=== PATIENT | male | born 1965 | race Hispanic/Latino ===

== ENCOUNTER 2018-01-27 23:53 | Inpatient (IN) | payer OTHER ==
[2018-01-28 00:45] LABS: #Basophils 0.1 thou/uL (0.0-0.2); #Eosinphils 0.1 thou/uL (0.0-0.7); #Lymphocytes 1.6 thou/uL (1.20-3.40); #Monocytes 1.3 thou/uL (0.11-0.59); %Basophils 0.8 % (0.0-1.0); %Eosinophils 1.1 % (0.0-10.0); %Lymphocytes 13.3 % (21.0-51.0); %Monocytes 10.5 % (0.0-10.0); %Neutrophils 74.3 % (42.0-75.0); Hemoglobin 10.7 g/dL (14.0-18.0); Mean Corpuscular HGB CONC 34.4 g/dL (32.0-36.0); Mean Corpuscular Hemoglobin 33.3 pg (27.0-31.0); Mean Corpuscular Volume 96.7 fL (78.0-98.0); Mean Platelet Volume 7.5 fL (7.4-10.4); Platelet Count 377 thou/uL (130-400); RBC Distribution Width 11.7 % (11.5-14.5); Red Blood Cell (RBC) Count 3.21 mill/uL (4.70-6.10); White Blood Cell (WBC) Count 12.1 thou/uL (4.8-10.8)
[2018-01-28] MEDS ORDERED: Piperacillin/Tazobactam 3.375 GM VIAL ONE (00:45)
[2018-01-28 00:51] LABS: PTT 27.9 SEC (22.9-36.1); Prothrombin Time 13.6 SEC (12.0-14.7)
[2018-01-28] MEDS ORDERED: Pantoprazole 80 MG, Admixture Fee 1 EACH in Sodium Chloride 0.9% 100 ML IVP SCH (01:00)
--- NOTE | 2018-01-28 01:01 | PDOC.FPRHP ---
- History of Present Illness Chief Complaint: Dark stools History of Present Illness: This is a 52 yo male with a PMH of Hep C, DM, MDD who presents to the ED with a cc of dark stools. Pt reports that he first notice dark, loose stools yesterday afternoon when he was using the restroom. He reports falling once on the way back to his bed. He denies head trauma at that time. He also reports abdominal pain and nausea that started after he notice the melena. He denies CP, SOB, or dizziness. Pt. also reports burning on urination and penile discharge. He reports being uncircumcised and states the symptoms started when his abdominal pain started. - Allergies/Adverse Reactions Allergies Allergy/AdvReac Type Severity Reaction Status Date / Time aripiprazole [From Abilify] Allergy Verified 01/28/18 00:46 Butyrophenones Allergy Verified 01/28/18 00:46 Phenothiazines Allergy Verified 01/28/18 00:46 - History PMHx: DMII, Hep C, MDD PSHx: Appendectomy FHx: noncontributory Social: Denies 2/ incarceration. Smoked prior to [facility] - Review of Systems General: reports: fever/chills (fever). denies: weight/appetite/sleep changes Eyes: reports: vision changes (blurry). denies: eye pain ENT: denies: nasal congestion, rhinorrhea Respiratory: denies: cough, congestion, shortness of breath Cardiovascular: reports: chest pain (yesterday, msk in nature, resolved currently). denies: palpitation Gastrointestinal: reports: diarrhea (dark tarry stools, no loss of bowel control ), abdominal pain. denies: nausea, vomiting Genitourinary: reports: dysuria. denies: incontinence Skin: denies: rashes, lesions Musculoskeletal: denies: pain, tenderness Neurological: denies: numbness, syncope Psychological: reports: depression. denies: anxiety - Vital signs BP: 152/99 HR: 99 RR: 20 Tmax: 98.7 Pox: 99% on 3 Wt: 122.47 Kg FMR H&P: Results - Labs Result Diagrams: 01/28/18 00:31 Lab results: WBC 12.1 thou/uL (4.8-10.8) H 01/28/18 00:31 Hgb 10.7 g/dL (14.0-18.0) L 01/28/18 00:31 Hct 31.1 % (42.0-52.0) L 01/28/18 00:31 MCV 96.7 fL (78.0-98.0) 01/28/18 00:31 Plt Count 377 thou/uL (130-400) 01/28/18 00:31 Neutrophils % 74.3 % (42.0-75.0) 01/28/18 00:31 - Radiology Interpretation CT scan - abdomen Status: report reviewed by me (No evidence for extravastation of contrast and identification of active GI bleed site. Sigmoid has short segmentwith thickened atkins and narrowed lumen. L5S1 disc disease) FMR H&P: A/P - Problem List (1) Upper GI bleed Current Visit: Yes Status: Acute Code(s): K92.2 - GASTROINTESTINAL HEMORRHAGE, UNSPECIFIED (2) DM type 2 (diabetes mellitus, type 2) Current Visit: Yes Status: Acute (3) Hepatitis C Current Visit: Yes Status: Acute Code(s): B19.20 - UNSPECIFIED VIRAL HEPATITIS C WITHOUT HEPATIC COMA (4) MDD (major depressive disorder) Current Visit: Yes Status: Acute Code(s): F32.9 - MAJOR DEPRESSIVE DISORDER , SINGLE EPISODE, UNSPECIFIED - Plan This is a 52 yo male with PMH of Hep c, DMII, MDD Upper GI bleed -Admit to medical. Repeat AM CBC. RUQ US looking for cirrhosis. We are giving pt. 1L ns bolus followed by maintenance. He is receiving protonix. We will consult GI in the morning for endoscopy. Likely not hemorrhagic in nature, however type and screen has been ordered. Outside lab shows A positive. Hgb is stable at 10.7, was 10.6 at outside facility DMII -Hold metformin for now. SSI with q6hr accuchecks DMM -Continue home meds Burning with urination -UA negative for UTI. We are running a GC/chlamydia as he has been having discharge. Hep C -Aware, raises some concern for cirrhosis and esophageal varices Code: Full Prophylaxis: protonix Family: none at bedside Disposition: Long Term in 2-3 days FMR H&P: Upper Level - Pertinent history CC: dark stool, abdominal pain HPI: 52 yo HM PMH IDDM and Hep C. Presents form [facility] with CC of abdominal pain for 2 days. States he has had dark tarry stools for 1.5 days. Denies prior dark stools. States he has had Hep C since he was 21 but has not been diagnosed with cirrhosis. He was seen at the [facility] before being transferred to [facility]. - Pertinent findings VS: unremarkable except for mild tachycardia at 103. GEN: mild pain, A&O x4, appropriately interactive. CV: tachycardic, regular, no murmur Lung: CTA-B, normal effort Abdomen: soft, TTP RUQ, LUQ, and epigastric region, BSx4 quadrants, no rebound or guarding. Labs: Remarkable for Hemoglobin 10.6->10.4->10.7, lipase negative, Alk Phos 147 , FOBT positive, CT Abdomen/pelvis: thickening sigmoid colon, otherwise unremarkable EKG: NSR, no ST changes, - Plan Date/Time: 01/28/18 0100 I, Fidel Tate MD, have evaluated this patient and agree with findings/plan as outlined by nutrition internship resident. Pertinent changes/additions are listed here. 1. Melena: mild tachycardia, will bolus 1L NS and start NS at 160 mL/hr, Type and screen in house in case transfusion is needed. continue protonix GTT. Will consider octreotide gtt if begins to vomit blood. GI consult in AM. Hold NPO for now. Will give rocephin 1g since cirrhosis cannot be r/o at this time 2. Abdominal Pain: possible gastritis, PRN fentanyl, 3. Hep C: RUQ US to evaluate for cirrhosis, rocephin. 4. IDDM: hold long acting insulin, Q6hr checks, sliding scale insulin, resume once off NPO. 5. Diet: NPO 6. PPx: protonix, SCD 7. CODE: FULL
[2018-01-28] MEDS ORDERED: Fentanyl 100 MCG/2 ML VIAL ONE (01:30)
[2018-01-28 02:13] LABS: Anion Gap 13 mmol/L (10-20); BUN (Urea Nitrogen) 49 mg/dL (8.4-25.7); Calc. Creatinine Clearance 0 mL/min (70-130); Calcium 9.4 mg/dL (7.8-10.44); Carbon Dioxide 22 mmol/L (22-29); Chloride 109 mmol/L (98-107); Estimated GFR-MDRD 80; Glucose 222 mg/dL (70-105); Potassium 4.8 mmol/L (3.5-5.1); Sodium 139 mmol/L (136-145)
[2018-01-28] MEDS ORDERED: Ondansetron ODT 4 MG TAB PO PRN (02:48)
[2018-01-28] MEDS ORDERED: HumaLOG 300 UNITS/3 ML VIAL SC PRN (02:48)
[2018-01-28] MEDS ORDERED: Dextrose 50% Abboject 50 ML SYRINGE SLOW IVP PRN (02:48)
[2018-01-28] MEDS ORDERED: Acetaminophen 325 MG TAB PO PRN (02:48)
[2018-01-28] MEDS ORDERED: Sodium Chloride 0.9% 1,000 ML IV SCH ×2 (02:48→16:43)
[2018-01-28] MEDS ORDERED: Dextrose 5% in Water 1,000 ML IV PRN (02:48)
[2018-01-28] MEDS: Sodium Chloride 0.9% 1,000 ML IV SCH ×5 (03:42→17:35)
[2018-01-28] MEDS ORDERED: cefTRIAXone\\ROCEPHIN 1 GM in Sodium Chloride 0.9% 100 ML IVPB SCH (04:00)
[2018-01-28 04:42] LABS: #Eosinphils 0.1 thou/uL (0.0-0.7); #Lymphocytes 1.2 thou/uL (1.20-3.40); #Monocytes 0.8 thou/uL (0.11-0.59); #Neutrophils 10.5 thou/uL (1.40-6.50); %Basophils 0.3 % (0.0-1.0); %Eosinophils 1.1 % (0.0-10.0); %Lymphocytes 9.5 % (21.0-51.0); %Monocytes 6.2 % (0.0-10.0); %Neutrophils 82.9 % (42.0-75.0); Hemoglobin 9.8 g/dL (14.0-18.0); Mean Corpuscular HGB CONC 35.6 g/dL (32.0-36.0); Mean Corpuscular Hemoglobin 34.1 pg (27.0-31.0); Mean Corpuscular Volume 95.9 fL (78.0-98.0); Mean Platelet Volume 8.4 fL (7.4-10.4); Platelet Count 319 thou/uL (130-400); RBC Distribution Width 11.5 % (11.5-14.5); Red Blood Cell (RBC) Count 2.86 mill/uL (4.70-6.10); White Blood Cell (WBC) Count 12.7 thou/uL (4.8-10.8)
[2018-01-28 04:45] LABS: Anion Gap 14 mmol/L (10-20); BUN (Urea Nitrogen) 43 mg/dL (8.4-25.7); Calc. Creatinine Clearance 0 mL/min (70-130); Calcium 8.9 mg/dL (7.8-10.44); Carbon Dioxide 19 mmol/L (22-29); Chloride 110 mmol/L (98-107); Estimated GFR-MDRD Greater than 90; Glucose 228 mg/dL (70-105); Potassium 4.5 mmol/L (3.5-5.1); Sodium 138 mmol/L (136-145)
[2018-01-28 04:51] VITALS: BMI 33.7
[2018-01-28] MEDS: Fentanyl 100 MCG/2 ML VIAL SLOW IVP PRN ×6 (06:57→23:47)
--- NOTE | 2018-01-28 07:27 | ULT ---
SONOGRAM RIGHT UPPER QUADRANT: HISTORY: Right upper quadrant pain. FINDINGS: Gallbladder is well distended without stone evident. Common duct 0.3 cm. Liver unremarkable without focal mass or intrahepatic biliary dilatation. No free fluid. IMPRESSION: Normal right upper quadrant sonogram. POS: [facility]
--- NOTE | 2018-01-28 10:01 | PDOC.FM ---
- Subjective Subjective: Patient states his abdominal pain is little better this AM. Denies diarrhea or further black stools. He has some generalized body jerking that he says he takes a medicine like benadryl for them. He reports having them a long time and not new or worsened. - Objective MAR Reviewed: Yes Vital Signs & Weight: Vital Signs (12 hours) Temp Pulse Resp BP Pulse Ox 01/28/18 08:00 97.4 F L 84 20 130/78 98 01/28/18 05:19 97.4 F L 84 20 136/82 97 01/28/18 02:30 97.8 F 95 18 144/90 H 100 Weight Weight 122.47 kg I&O: 01/27/18 01/28/18 01/29/18 06:59 06:59 06:59 Intake Total 1465 Output Total 800 Balance 665 Result Diagrams: 01/28/18 03:49 01/28/18 03:49 Radiology: RUQ US- no evidence of cirrhosis, liver abnormalities or gallbladder. Phys Exam - Physical Examination Constitutional: NAD Respiratory: no wheezing, no rales, no rhonchi, clear to auscultation bilateral Cardiovascular: RRR, no significant murmur Gastrointestinal: soft mild diffuse tenderness, worse in epigastric region Musculoskeletal: no edema Neurological: normal sensation, moves all 4 limbs generalized body shaking, somewhat like a jerking sensation Psychiatric: normal affect, A&O x 3 Dx/Plan (1) Upper GI bleed Code(s): K92.2 - GASTROINTESTINAL HEMORRHAGE, UNSPECIFIED Status: Acute Plan: Spoke with GI for EGD will stop rocephin as no evidence for cirrhosis on US and nmll coags and LFTs. cont protonix (2) DM type 2 (diabetes mellitus, type 2) Status: Acute Plan: hold long acting insulin until taking po (3) Hepatitis C Code(s): B19.20 - UNSPECIFIED VIRAL HEPATITIS C WITHOUT HEPATIC COMA Status: Chronic Qualifiers: Viral hepatitis chronicity: chronic (4) MDD (major depressive disorder) Code(s): F32.9 - MAJOR DEPRESSIVE DISORDER, SINGLE EPISODE, UNSPECIFIED Status : Acute
[2018-01-28] MEDS ORDERED: Ondansetron HCl/PF 4 MG/2 ML Vial IVP PRN (12:27)
[2018-01-28] MEDS ORDERED: Lidocaine 1% PF 5 ML VIAL ONE (14:39)
[2018-01-28] MEDS ORDERED: PHENYLEPHRINE-NS 100 MCG/ML 10 ML SYRINGE ONE (14:39)
[2018-01-28] MEDS ORDERED: PROPOFOL 200 MG/20 ML VIAL ONE (14:39)
[2018-01-28] MEDS ORDERED: GoLYTELY 4,000 ml Bottle PO SCH (17:30)
--- NOTE | 2018-01-29 00:47 | CON ---
DATE OF CONSULTATION: 01/28/2018 REFERRING PHYSICIAN: Dr. Manpreet Argueta and Dr. Anna Mckeon, [facility]. REASON FOR CONSULTATION: History of black tarry stool, anemia due to blood loss. HISTORY OF PRESENT ILLNESS: Mr. Bravo Johns is a very pleasant 52-year-old Latin-Bel[place]ian male transferred from the [facility] with history of melena stool. The patient has had no prior GI symptoms. The patient has had noted black tarry stool yesterday and was brought to the ER. He had a CBC done which showed mild anemia. The stool is tarry and black. The patient did have abdominal pain, nausea, vomiting. There is no history of chronic acid reflux. The patient has no prior history of peptic ulcer disease. The patient's bowel movements are fairly regular, it goes once every day. He denies any rectal bleeding in the past. The patient has had no intake. No history of any aspirin intake. The patient is awake, alert, and communicative. The patient is living in [place], [place] and he is in the [facility] for the last 9 months. The patient has history of depression and also history of type 2 diabetes mellitus. History of chronic hepatitis C for more than 20 years. He says he has never been treated before. Mostly his hepatitis status is unclear. He does see a doctor in [place] and does not have any recent hepatitis markers done. He has no relevant history. ALLERGIES: ABILIFY, PHENOTHIAZINES, BUTYROPHENONE. SOCIAL HISTORY: The patient is single. Past history of smoking. No history of alcohol abuse in the past, but since he has been in half[place]way, he has had known smoking or drinking alcohol. Past history of drug abuse many years ago. MEDICAL ILLNESSES: 1. Major depression. 2. Type 2 diabetes mellitus. 3. Chronic hepatitis C, untreated. . MEDICATION LIST: Reviewed. FAMILY HISTORY: Mother has diabetes mellitus and breast cancer. Brother has hep C and patient was unable to tell me whether he was treated. REVIEW OF SYSTEMS: A 10-point system review. Constitutional: No history of fever, no weight loss, no night sweats. Respiratory System: No history of chronic cough, hemoptysis, dyspnea. Cardiovascular System: No chest pain, no palpitation, no dyspnea, orthopnea or PND. Gastrointestinal: History of dark stool since yesterday, but before that he had no GI symptoms. Genitourinary: No dysuria, complains of burning with urination and some discharge. Musculoskeletal/Endocrine/Hematologic: Nonrelevant. Neuropsychiatric: History of major depression. PHYSICAL EXAMINATION: GENERAL: He is awake, alert, and communicative. He is in no distress. VITAL SIGNS: Temperature 97.4 degrees Fahrenheit, pulse is 84, blood pressure 130/78. HEENT: Conjunctivae clear. NECK: Supple. No adenitis or thyromegaly noted. CARDIOVASCULAR SYSTEM: First and second heart sounds normal. LUNGS: Clear to auscultation. ABDOMEN: Abdomen is soft. Abdomen is nondistended. Abdomen is nontender. There is no organomegaly or masses. Bowel sounds normal. EXTREMITIES: Reveal no edema. LABORATORY DATA: On admission, WBC 12,100, today 12,700; hemoglobin 10.7 dropping to 9.8 today; hematocrit 31.1; platelet count 319,000; polymorphs 82; lymphocytes 9. Serum chemistries: Sodium 138, potassium 4.5, chloride 110, bicarbonate 19, BUN is 23, creatinine 0.86, glucose 228, calcium 9.4. Abdominal sonogram, which revealed no pathology. CLINICAL IMPRESSION: 1. A 52-year-old Latin-Bel[place]ian male with black tarry stool since yesterday. The patient has no abdominal pain, no nausea or vomiting. There is no prior history of peptic ulcer. History of hepatitis C, which is untreated. He has no prior history of liver cirrhosis. Based on the history, I believe he most likely has bleeding ulcer disease. However, a CAT scan done and I cannot find the CAT scan report anywhere. However the admitting history and physical stated that he had a sigmoid colon wall thickening and also luminal narrowing. However, he has no other GI symptoms. 2. Type 2 diabetes mellitus. 3. Depression. 4. Chronic hepatitis C. PLAN: Emergent EGD. I believe he probably needs a colonoscopy, because abdominal CAT scan showing some thickening of the sigmoid colon with some luminal narrowing. [facility]
[2018-01-29] MEDS: Sodium Chloride 0.9% 1,000 ML IV SCH ×3 (01:15→17:27)
--- NOTE | 2018-01-29 03:06 | OP ---
DATE OF PROCEDURE: 01/28/2018 OPERATIVE PROCEDURE: Esophagogastroduodenoscopy with biopsy. PREOPERATIVE DIAGNOSES: A 52-year-old male with melena, anemia due to blood loss. The patient underwent EGD. The patient also has history of chronic hepatitis C, untreated. POSTOPERATIVE DIAGNOSES: 1. Normal esophageal mucosa. No esophageal varices seen. 2. No gastric varices seen. 3. Two large ulcers over the gastric antrum. The ulcers are quite large and deep. The ulcer base is very smooth and clean, and I do not see a visible vessel. At the time of endoscopy, the stomach is completely free of any blood. 4. Normal duodenum. PROCEDURE IN DETAIL: The patient was placed on his left lateral position and was given sedation by Anesthesia Department. A Pentax video gastroscope under direct vision passed down the oropharynx, past the GE junction into the stomach. The stomach was completely free of any blood. The esophageal mucosa appeared normal. There were no esophageal varices seen. No esophagitis seen. At the GE junction, no pathology seen. Retroflexion failed to show any pathology in the fundus or cardia. There were no gastric varices seen. The gastric antrum shows 2 large ulcerations. The ulcerations appeared chronic and quite large. One of the ulcer measured approximately 3 x 2 cm and other one measured by 3 x 2 cm. Both the ulcer base appeared smooth and I could not see any visible vessel. The duodenal bulb and descending duodenum, no pathology seen. A biopsy obtained from the gastric ulcer at the margins. The stomach was decompressed and the scope removed. RECOMMENDATIONS: 1. Clear liquid diet. 2. Protonix. 3. Follow up H&H. 4. Transfuse p.r.n. 5. Obtain hepatitis markers to see whether he still has positive hepatitis C RNA. 6. There is some mention of sigmoid colon thickening and narrowing on CAT scan , but the patient really does not have any lower GI symptoms. May consider colonoscopy before discharge. [facility]
[2018-01-29] MEDS: Fentanyl 100 MCG/2 ML VIAL SLOW IVP PRN ×4 (04:25→20:43)
--- NOTE | 2018-01-29 06:11 | PDOC.FM ---
- Subjective Subjective: Pt is trying to finish his bowel prep this morning for his colonoscopy. He is still having black stools, reports nausea. - Objective Vital Signs & Weight: Vital Signs (12 hours) Temp Pulse Resp BP BP Pulse Ox 01/29/18 04:44 98.2 F 91 16 114/66 96 01/29/18 01:22 98.6 F 98 18 135/78 99 01/28/18 20:40 97 01/28/18 20:00 99.5 F 93 18 122/74 97 Weight Weight 122.47 kg I&O: 01/27/18 01/28/18 01/29/18 06:59 06:59 06:59 Intake Total 1465 Output Total 800 Balance 665 Result Diagrams: 01/29/18 07:23 01/29/18 07:23 <Brunilda Hennessy - Last Filed: 01/29/18 09:15> - Objective Vital Signs & Weight: Vital Signs (12 hours) Temp Pulse Resp BP BP Pulse Ox 01/29/18 12:25 97.8 F 80 18 132/78 98 01/29/18 08:00 97.5 F L 88 18 129/71 97 01/29/18 04:44 98.2 F 91 16 114/66 96 Weight Weight 122.47 kg I&O: 01/28/18 01/29/18 01/30/18 06:59 06:59 06:59 Intake Total 1465 3450 480 Output Total 800 2200 Balance 665 1250 480 Result Diagrams: 01/29/18 14:02 01/29/18 07:23 <Deloris Pro - Last Filed: 01/29/18 15:48> Phys Exam - Physical Examination Apppears uncomfortable, pale HEENT: PERRLA Neck: no nodes, supple Respiratory: no wheezing, clear to auscultation bilateral Cardiovascular: RRR, no significant murmur Gastrointestinal: soft, positive bowel sounds TTP in suprapubic area Musculoskeletal: no edema, pulses present Psychiatric: normal affect, A&O x 3 <Brunilda Hennessy - Last Filed: 01/29/18 09:15> Dx/Plan (1) Upper GI bleed Code(s): K92.2 - GASTROINTESTINAL HEMORRHAGE, UNSPECIFIED Status: Acute (2) Hepatitis C Code(s): B19.20 - UNSPECIFIED VIRAL HEPATITIS C WITHOUT HEPATIC COMA Status: Chronic Qualifiers: Viral hepatitis chronicity: chronic (3) DM type 2 (diabetes mellitus, type 2) Status: Chronic (4) MDD (major depressive disorder) Code(s): F32.9 - MAJOR DEPRESSIVE DISORDER, SINGLE EPISODE, UNSPECIFIED Status : Chronic - Plan Plan: 52 yo M presents with UGI bleed Upper GI Bleed -Spoke with GI for EGD, showed ulcers -biopsy path pending -will stop rocephin as no evidence for cirrhosis on US and nml coags and LFTs. -cont protonix -Colonoscopy today -Hgb dropped significantly today to 7.6, will repeat H&H today. Continue fluids DM type 2 -restart long acting insulin after colonoscopy Hepatitis C -aware Concern for G/C -Pt has discharge and penile pain -Awaiting GC results, will treat pending results MDD <Brunilda Hennessy - Last Filed: 01/29/18 09:15> Attending Addendum - Attending Addendum Date/Time: 01/29/18 [id number] I personally evaluated the patient and discussed the management with Dr. Cheli Hennessy I agree with the History, Examination, Assessment and Plan documented above with any addition or exceptions noted below- Patient denies any complaints. Hungry and ready to eat. Denies any abdominal pain currently. Afebrile VSS. A/P : 1) Upper Gi bleed secondary to gastric ulcer- Appreciate GI assistance; Continue PPI. Colonoscopy done today negative per patient. 2) Anemia secondary to #1- repeat H/H stable; continue to monitor; start iron. 3) DM- elevated BG but has been NPO intermittently; will monitor now that diet has resumed and adjust meds as needed. <Deloris Pro - Last Filed: 01/29/18 15:48>
[2018-01-29 07:47] LABS: #Basophils 0.1 thou/uL (0.0-0.2); #Eosinphils 0.4 thou/uL (0.0-0.7); #Lymphocytes 1.5 thou/uL (1.20-3.40); #Monocytes 0.6 thou/uL (0.11-0.59); #Neutrophils 3.8 thou/uL (1.40-6.50); %Basophils 1.2 % (0.0-1.0); %Eosinophils 6.8 % (0.0-10.0); %Lymphocytes 23.1 % (21.0-51.0); %Monocytes 8.9 % (0.0-10.0); Hemoglobin 7.6 g/dL (14.0-18.0); Mean Corpuscular HGB CONC 34.2 g/dL (32.0-36.0); Mean Corpuscular Hemoglobin 33.1 pg (27.0-31.0); Mean Corpuscular Volume 96.8 fL (78.0-98.0); Mean Platelet Volume 7.5 fL (7.4-10.4); Platelet Count 286 thou/uL (130-400); RBC Distribution Width 11.5 % (11.5-14.5); Red Blood Cell (RBC) Count 2.31 mill/uL (4.70-6.10); White Blood Cell (WBC) Count 6.3 thou/uL (4.8-10.8)
[2018-01-29 08:02] LABS: Anion Gap 12 mmol/L (10-20); BUN (Urea Nitrogen) 13 mg/dL (8.4-25.7); Calc. Creatinine Clearance 200 mL/min (70-130); Carbon Dioxide 23 mmol/L (22-29); Chloride 108 mmol/L (98-107); Estimated GFR-MDRD Greater than 90; Glucose 160 mg/dL (70-105); Sodium 139 mmol/L (136-145)
--- NOTE | 2018-01-29 08:47 | ADD-HP ---
ADDENDUM Please see the note from the residents, for which I agree. The patient was seen, evaluated, examined, and discussed with the residents by bedside. HISTORY OF PRESENT ILLNESS: This is a 52-year-old gentleman, who is coming in with melena and abdomi nal pain. No hematemesis and all of this basically just started in the last few days. Hemoglobin wa s a little bit low at 10, and so he is being admitted for a GI bleed. It does not sound like he has had this before. Does have history of type 2 diabetes and depression. It sounds like he potentially has tardive dyskinesia, also hepatitis C. Otherwise, past medical history, past surgical history, m edications, and social history, all per the resident's note, for which I agree. PHYSICAL EXAMINATION: GENERAL: In no apparent distress. Seems a little bit depressed. He has got a little bit of just ki nd of writhing of his hands and feet that I assume is a tardive dyskinesia-type set up. He is alert and oriented x3. HEENT: Conjunctivae not particularly pale. Sclerae anicteric. Moist mucosa. CHEST: Clear. CARDIOVASCULAR: Regular rate and rhythm. ABDOMEN: Benign, a little bit of epigastric tenderness, but nothing extreme. EXTREMITIES: No edema. LABORATORY AND X-RAY FINDINGS: Labs reviewed, significant for hemoglobin being just a little bit low and an ultrasound was reviewed and showed no evidence of cirrhosis or mass in the liver. ASSESSMENT AND PLAN: Gastrointestinal bleed, likely peptic ulcer disease, although could be a risk f or varicoceles. We will get GI involved, they are probably going to scope him. Continue proton pump inhibitors for n ow. Otherwise, we are resuming all his home medications, and we will figure out plan basically on wh at the EGD shows.
[2018-01-29] MEDS ORDERED: PROPOFOL 200 MG/20 ML VIAL ONE (11:09)
[2018-01-29] MEDS ORDERED: Promethazine HCl 25 MG/ML VIAL SLOW IVP PRN (12:00)
[2018-01-29] MEDS ORDERED: Ondansetron HCl/PF 4 MG/2 ML Vial IVP PRN (12:00)
[2018-01-29] MEDS ORDERED: Promethazine HCl 25 MG/ML VIAL IM PRN (12:00)
[2018-01-29] MEDS ORDERED: Pantoprazole 40 MG VIAL IVP SCH (12:05)
[2018-01-29 12:52] LABS: HIV (1/2) Antibody/Antigen Non-Reactive (NonReactive); HIV 1/2 INDEX 0.15 S/CO (<1.00); Syphilis Antibody Nonreactive (Nonreactive); Syphilis Antibody Index 0.02 S/CO (<1.00 Non-Reactive)
[2018-01-29 14:07] LABS: Hemoglobin 8.2 g/dL (14.0-18.0); Mean Corpuscular HGB CONC 34.3 g/dL (32.0-36.0); Mean Corpuscular Hemoglobin 33.2 pg (27.0-31.0); Mean Corpuscular Volume 96.8 fL (78.0-98.0); Mean Platelet Volume 7.3 fL (7.4-10.4); Platelet Count 310 thou/uL (130-400); RBC Distribution Width 11.6 % (11.5-14.5); Red Blood Cell (RBC) Count 2.45 mill/uL (4.70-6.10); White Blood Cell (WBC) Count 6.7 thou/uL (4.8-10.8)
[2018-01-29] MEDS: metFORMIN 500 MG TAB PO SCH (17:27)
--- NOTE | 2018-01-29 17:38 | OP ---
DATE OF PROCEDURE: 01/29/2018 OPERATIVE PROCEDURE: Colonoscopy. PREOPERATIVE DIAGNOSES: A 52-year-old male hospitalized with melena and had a CAT scan as outpatient in a different location. The CAT scan showed possible mass in the sigmoid colon and thickening of the sigmoid colon. The patient underwent colonoscopy. POSTOPERATIVE DIAGNOSES: 1. No sigmoid narrowing or mass seen. 2. Hemorrhoids. The quality of prep was somewhat fair because he has a large amount of retained fluid and some fecal material. Overall, the exam was good. PROCEDURE NOTE: The patient was placed on his left lateral position and was given sedation by Anesthesia Department. A rectal exam was done before the scope was advanced into the rectum. No lesion felt on rectal exam. A Pentax video colonoscope was introduced into the rectum and advanced all the way to the cecum. The exam was difficult due to the fact that the patient did not completely empty of the colon. He has a large amount of some coffee-ground fluid and also some small amount of stool. There is also a large amount of bile with frothy looking colon. Water was irrigated and assured. The appendical orifice, ileocecal valve, cecum, no pathology seen. The mucosa appears normal throughout the colon with normal vascular pattern. Withdrawal of scope in the cecum, ascending colon and hepatic flexure, transverse colon, no pathology seen. The splenic flexure, descending colon, and sigmoid colon, no pathology seen. Retroflexion of scope in the rectum showed hemorrhoids. RECOMMENDATIONS: 1. Continue pantoprazole. 2. Consider discharge in the next 24 hours. [facility]
[2018-01-29] MEDS: Pantoprazole 40 MG VIAL IVP SCH (20:35)
[2018-01-29] MEDS ORDERED: Venlafaxine HCl XR 150 MG CAP PO SCH (21:00)
[2018-01-29] MEDS ORDERED: NPH, Human Insulin Isophane 300 UNIT/3 ML VIAL SC SCH (21:00)
[2018-01-29 22:56] LABS: Chlamydia by PCR Not Detected (NotDetected); GC by PCR Not Detected (NotDetected)
[2018-01-30] MEDS: Fentanyl 100 MCG/2 ML VIAL SLOW IVP PRN ×5 (01:12→17:39)
[2018-01-30] MEDS: Sodium Chloride 0.9% 1,000 ML IV SCH ×2 (01:12→08:14)
[2018-01-30] MEDS: Ondansetron HCl/PF 4 MG/2 ML Vial IVP PRN ×2 (01:18→09:25)
[2018-01-30 04:54] LABS: #Eosinphils 0.4 thou/uL (0.0-0.7); #Lymphocytes 1.1 thou/uL (1.20-3.40); #Monocytes 0.6 thou/uL (0.11-0.59); #Neutrophils 4.1 thou/uL (1.40-6.50); %Basophils 0.5 % (0.0-1.0); %Eosinophils 6.6 % (0.0-10.0); %Lymphocytes 18.1 % (21.0-51.0); %Neutrophils 65.9 % (42.0-75.0); Hemoglobin 7.6 g/dL (14.0-18.0); Mean Corpuscular HGB CONC 34.9 g/dL (32.0-36.0); Mean Corpuscular Hemoglobin 33.7 pg (27.0-31.0); Mean Corpuscular Volume 96.5 fL (78.0-98.0); Platelet Count 302 thou/uL (130-400); RBC Distribution Width 11.7 % (11.5-14.5); Red Blood Cell (RBC) Count 2.24 mill/uL (4.70-6.10); White Blood Cell (WBC) Count 6.2 thou/uL (4.8-10.8)
[2018-01-30 05:10] VITALS: TEMP 98
[2018-01-30 05:17] LABS: Anion Gap 12 mmol/L (10-20); BUN (Urea Nitrogen) 8 mg/dL (8.4-25.7); Calc. Creatinine Clearance 208 mL/min (70-130); Calcium 8.1 mg/dL (7.8-10.44); Carbon Dioxide 22 mmol/L (22-29); Chloride 108 mmol/L (98-107); Estimated GFR-MDRD Greater than 90; Glucose 130 mg/dL (70-105); Potassium 3.7 mmol/L (3.5-5.1); Sodium 138 mmol/L (136-145)
--- NOTE | 2018-01-30 06:24 | PDOC.FM ---
- Subjective Subjective: Pt states he is feeling less nauseated this morning, abdominal pain has improved somewhat. Ate yesterday and breakfast this morning. Had a normally- colored BM yesterday after his colonoscopy per nursing. - Objective Vital Signs & Weight: Vital Signs (12 hours) Temp Pulse Resp BP Pulse Ox 01/30/18 05:10 98.0 F 78 16 145/85 H 94 L 01/30/18 00:00 98.3 F 78 18 139/77 95 01/29/18 20:00 99.5 F 93 18 147/64 H 95 Weight Weight 122.47 kg I&O: 01/28/18 01/29/18 01/30/18 06:59 06:59 06:59 Intake Total 1465 3450 2450 Output Total 800 2200 1775 Balance 665 1250 675 Result Diagrams: 01/30/18 03:48 01/30/18 03:48 <Brunilda Hennessy - Last Filed: 01/30/18 08:52> - Objective Vital Signs & Weight: Weight Weight 122.47 kg I&O: 01/29/18 01/30/18 01/31/18 06:59 06:59 06:59 Intake Total 3450 2450 720 Output Total 2200 1775 Balance 1250 675 720 Result Diagrams: 01/30/18 03:48 01/30/18 03:48 <Deloris Pro - Last Filed: 01/30/18 21:49> Phys Exam - Physical Examination Constitutional: NAD Neck: no nodes, supple Respiratory: no wheezing, clear to auscultation bilateral Cardiovascular: RRR, no significant murmur Gastrointestinal: soft <Brunilda Hennessy - Last Filed: 01/30/18 08:52> Dx/Plan (1) Upper GI bleed Code(s): K92.2 - GASTROINTESTINAL HEMORRHAGE, UNSPECIFIED Status: Acute (2) Hepatitis C Code(s): B19.20 - UNSPECIFIED VIRAL HEPATITIS C WITHOUT HEPATIC COMA Status: Chronic Qualifiers: Viral hepatitis chronicity: chronic (3) DM type 2 (diabetes mellitus, type 2) Status: Chronic (4) MDD (major depressive disorder) Code(s): F32.9 - MAJOR DEPRESSIVE DISORDER, SINGLE EPISODE, UNSPECIFIED Status : Chronic - Plan Plan: 52 yo M presents with UGI bleed Upper GI Bleed -Spoke with GI for EGD, showed ulcers -biopsy path pending -Rocephin was d/c as no evidence for cirrhosis on US and nml coags and LFTs. -continue IV protonix -Colonoscopy showed hemorrhoids, no masses, normal mucosa. +Coffee ground fluid -D/c fluids -Hgb remains at 7.6. Continue fluids -Recheck Hgb tomorrow AM DM type 2 -Home medications restarted Hepatitis C -aware Smegma -Pt complained of "discharge" -GC/HIV/RPR negative -Upon repeat questioning, discharge was on foreskin, more thick in nature -Encouraged adequate hygiene, cleansing foreskin in shower MDD Dispo: Discharge tomorrow on oral protonix pending clinical picture changes <Brunilda Hennessy - Last Filed: 01/30/18 08:52> Attending Addendum - Attending Addendum Date/Time: 01/30/18 [id number] I personally evaluated the patient and discussed the management with Dr. Cheli Hennessy I agree with the History, Examination, Assessment and Plan documented above with any addition or exceptions noted below- Patient without complaints. Afebrile VSS A/P: 1) GI bleed secondary to gastric ulcer- H/H stable. Continue PPI and d/chome today. Continue iron replacement. <Deloris Pro - Last Filed: 01/30/18 21:49>
[2018-01-30] MEDS: metFORMIN 500 MG TAB PO SCH ×2 (08:09→16:30)
[2018-01-30] MEDS: Pantoprazole 40 MG VIAL IVP SCH (08:11)
[2018-01-30 08:14] VITALS: BP 149/84
[2018-01-30] MEDS ORDERED: NPH, Human Insulin Isophane 300 UNIT/3 ML VIAL SC SCH (09:00)
--- NOTE | 2018-01-31 05:51 | DIS-2 ---
DATE OF ADMISSION: 01/28/2018 DATE OF DISCHARGE: 01/30/2018 ADMITTING ATTENDING: Dr. Argueta. DISCHARGE ATTENDING: Dr. Pro. CONSULTATION: Dr. Garay, GI on 01/28/2018. PROCEDURES: 1. Esophagogastroduodenoscopy with biopsy on 01/28/2018, showed: A. Normal esophageal mucosa, no esophageal varices seen. B. No gastric varices seen. C. Two large ulcers of the gastric antrum. Those are quite large and deep. The ulcer base is very smooth and clean and they are not visible vessels. At the time of endoscopy, the stomach was completely free of any blood. D. Normal duodenum. The ulcerations appeared quite chronic and large. One of the ulcers measured approximately 3 x 2 cm and the other one measured 3 x 2 cm, biopsy was obtained of the gastric ulcer at the margins. 2. Abdomen ultrasound on 01/28/2018: Impression: Normal right upper quadrant sonogram. 3. Colonoscopy on 01/29/2018: Postoperative diagnosis: No sigmoid narrowing or mass seen. Hemorrhoids. The prep was somewhat fair because he had a large amount of retained fluid and some fecal matter. Overall, the exam was good. Within a larger amount of some coffee-ground fluid and also a small amount of stool, there is a large amount of bile with frothy looking colon. Appendiceal orifice, ileocecal valve, cecum had no pathology seen. Mucosa appeared normal throughout the colon with a normal vascular pattern. PRIMARY DIAGNOSIS: Upper gastrointestinal bleed. SECONDARY DIAGNOSES: 1. Type 2 diabetes mellitus. 2. Hepatitis C. 3. Major depressive disorder. DISCHARGE MEDICATIONS: 1. Benzoyl peroxide 1 application topical daily. 2. Ferrous sulfate 325 mg p.o. daily. 3. Insulin NPH human isophane 56 units subcu q.a.m. 4. Insulin NPH human isophane 19 units subcutaneous q.p.m. 5. Loratadine 10 mg p.o. daily. 6. Metformin 1000 mg p.o. b.i.d. 7. Pantoprazole 40 mg p.o. b.i.d. 8. Venlafaxine 150 mg p.o. q.p.m. 9. Protonix 40 mg p.o. b.i.d. for 2 weeks, then transitioned to 40 mg p.o. daily afterwards. DISCONTINUED MEDICATIONS: Zosyn and Rocephin. HISTORY OF PRESENT ILLNESS AND HOSPITAL COURSE: A 52-year-old male with past medical history of hepatitis C, diabetes mellitus, and major depressive disorder who presented to the ED with a chief complaint of dark stools. Patient reported that he first noticed the dark loose stools a day prior when using the restroom. He reported falling once on the way back to bed. He denied any head trauma at that time. He also reported abdominal pain and nausea started after he noticed the melena. He denied shortness of breath, chest pain, or dizziness. Patient also reported burning on urination and penile discharge. He reported being uncircumcised and states the symptoms started when his abdominal pain started. UA was neg. The patient had an EGD, which showed two large 3 x 2 cm ulcers. Biopsies were taken and pathology is pending. He had no evidence for cirrhosis on ultrasound, has had normal coagulation profile and LFTs. He was placed on IV Protonix. His hemoglobin dropped to 10.7 from 7.6 on admission. He was monitored and continued on fluids. His colonoscopy showed hemorrhoids, no masses, and a normal mucosa. There was coffee-ground fluid within his colon. His hemoglobin remained stable for more than 24 hours before his discharge. After his colonoscopy, he was restarted on a diet and his diabetes medications were restarted. He was tested for gonorrhea, chlamydia, HIV, and syphilis, which were all negative. Upon repeat questioning, it appeared that his discharge was actually smegma. Adequate hygiene was encouraged. Patient was discharged on oral Protonix. Awaiting biopsy path results, will call the [facility] with results. DISPOSITION: Stable. DISCHARGE INSTRUCTIONS: 1. Location[facility]. 2. Diet: Consistent carbohydrate. 3. Activity: As tolerated. 4. Followup: Follow up with his primary care provider at the [facility]. [place]
== END 2018-01-30 18:11 | DRG 379 ==
LOC: ERS 23:53 → T4-B 01-28 02:23
PROVIDERS: ADMIT Family Medicine; ATTEND Family Medicine
PROC: 0DB68ZX Excision of Stomach, Via Natural or Artificial Opening Endoscopic, Diagnostic (ICD-10-PCS; principal; 2018-01-28)
DX: K92.2 Gastrointestinal hemorrhage, unspecified (principal); K25.7 Chronic gastric ulcer without hemorrhage or perforation; D50.0 Iron deficiency anemia secondary to blood loss (chronic); B18.2 Chronic viral hepatitis C; F32.9 Major depressive disorder, single episode, unspecified; E11.65 Type 2 diabetes mellitus with hyperglycemia
CPT/HCPCS: 36415; 36416; 76705; 80048; 85025; 85610; 85730; 86780; 86850; 86900; 86901; 87389; 87491; 87591; 88305; 88312; 96365; 96367; 96375; A4216; C9113; J0696; J1815; J2001; J2405; J2543; J2704; J3010; J7050